=== PATIENT | male | born 1965 | race Hispanic/Latino ===

== ENCOUNTER 2024-02-21 13:33 | Emergency (ER) | payer BC ==
[~2024-02-21] VITALS: Ht 188 cm; Wt 87.5 kg
[2024-02-21] MEDS ORDERED: FAMO-136 PO (14:27)
[2024-02-21] MEDS ORDERED: SULF1TAB42 PO (14:27)
[2024-02-21] MEDS ORDERED: DIPH25CA85 PO (14:27)
[2024-02-21] MEDS ORDERED: DEXAMETHASONE SOD PHOSPHATE 4 MG/ML 1ML VIAL IARTIC ONE (14:30)
[2024-02-21] MEDS: DEXAMETHASONE SOD PHOSPHATE 4 MG/ML 1ML VIAL IM ONE (14:52)
[2024-02-21] MEDS: KETOROLAC 30MG VIAL (30MG/ML) IM ONE (14:52)
[2024-02-21 15:02] VITALS: BP 145/92; PULSE 57; RESP 18; O2SAT 100
== END 2024-02-21 15:03 | disposition home or self-care (01) ==
LOC: EDH 13:33
DX: S60.562A Insect bite (nonvenomous) of left hand, initial encounter (principal); W57.XXXA Bitten or stung by nonvenomous insect and other nonvenomous arthropods, initial encounter; Y93.89 Activity, other specified; Y92.89 Other specified places as the place of occurrence of the external cause; Y99.8 Other external cause status
CPT/HCPCS: 99284; 96372 ×2; J1100; J1885